=== PATIENT | female | born 1985 | race Caucasian/White ===

== ENCOUNTER 2022-04-24 13:30 | Outpatient (CLI) | payer SELFPAY | END 2022-04-24 13:31 | disposition home or self-care (01) | LOC: NFLDREF 13:37 | PROVIDERS: Visit Provider Registered Nurse | DX: Z12.4 Encounter for screening for malignant neoplasm of cervix (principal) | CPT/HCPCS: 87624; 88175 ==

== ENCOUNTER 2023-06-18 13:57 | Emergency (ER) | payer OTHER, SELFPAY ==
[2023-06-18 14:08] VITALS: BP 129/70; PULSE 80; RESP 20; TEMP 36.5; O2SAT 95; BMI 35.7
--- NOTE | 2023-06-18 14:18 | ED_ITS ---
HPI - Extremity Injury (Lower) General Time Seen by Provider: 14:18 Date Seen: 06/18/23 Chief Complaint: Extremity Pain/Injury, Lower Stated Complaint: Right Ankle injury Time Seen by Provider: 06/18/23 13:58 Source: patient and RN notes reviewed Mode of arrival: ambulatory Limitations: no limitations History of Present Illness HPI Narrative: This 38-year-old female is coming in with ongoing right ankle pain. She injured herself tripping and slipping about 9 days ago on the rocks when it was raining and was slippery. She did note swelling of the ankle. She has been trying to ice, elevate and use [id number] medications. It continues to be painful and bruised. She wonders if perhaps she maybe did injure sub the worse than she suspected. Is only her right ankle that is painful. She denies any numbness tingling in the foot. Related Data Home Medications Medication Instructions Recorded Confirmed copper 380 square mm intrauterine 1 device intrauterine ONCE 04/24/22 06/18/23 device (ParaGard T 380A) multivitamin 1 tab PO QAM 04/24/22 06/18/23 Allergies Allergy/AdvReac Type Severity Reaction Status Date / Time No Known Allergies Allergy Verified 06/18/23 14:15 Review of Systems Narrative: As per HPI. PFSH PFSH Medical History Tubal without intrauterine ?O00.109 - Unspecified tubal without intrauterine (ICD- 10) History of vaginal delivery Family History (Updated 04/20/22 @ 12:34 by Shyanne Liriano) Father High cholesterol Social History Narrative: Non-smoker Smoking Status: Former smoker Do you use any of these nicotine containing products: None How often do you have a drink containing alcohol: 2-4 times a month AUDIT-C Alcohol total score: 2 Non-prescribed substance use: denies use service: No Exam Const: Vital Signs, click to edit/add: Vital Signs - 24 hr 06/18/23 14:08 Temperature 97.7 F Pulse Rate [Right Pulse Oximeter] 80 Respiratory Rate 20 Blood Pressure [Ri ght Upper Arm] 129/70 Pulse Oximetry 95 Oxygen Delivery Me thod Room Air This 38-year-old female is alert interactive no apparent distress. When seen in exam room for, can see that there is visible ecchymosis about the distal ankle both medially and laterally. Ankle has soft tissue swelling but I do not feel any joint effusion. She is tender over the distal right lateral malleolus. She has good pulses, distal sensation of toes is normal and she wiggles her toes easily. She does have range of motion about her ankle but does state it does hurt to bear weight. Documenting provider has reviewed patient's vital signs: yes Course Course Hospital Course: Agree with patient that she should have imaging. Will order x-rays of this ankle. The x-rays are negative, likely represents a significant ankle sprain in either way she understands I will ask her to follow up with Orthopedics. Reevaluation(s) Time of Reevaluation #1: 15:21 Reevaluation #1: Reviewed with patient that I certainly do not see any fracture on my preliminary review. This would indicate a significant sprain. We will try her in a cam walker, if that diminishes her pain with ambulation this should be sufficient. She understands that she will need to follow up with Orthopedics. Certainly the radiology over-read is pending. If there is any concern on this, will let her know. Either way, she will be in a cam walker which would most likely be appropriate immobilization for most things. Vital Signs Vital signs: Initial Vital Signs Temperature 97.7 F 06/18/23 14:08 Temperature Source Temporal Artery Scan 06/18/23 14:08 Pulse Rate 80 06/18/23 14:08 Pulse Rhythm Regular 06/18/23 14:08 Respiratory Rate 20 06/18/23 14:08 Blood Pressure 129/70 06/18/23 14:08 Blood Pressure Mean 89 06/18/23 14:08 Blood Pressure Position Sitting 06/18/23 14:08 Pulse Oximetry 95 06/18/23 14:08 Oxygen Delivery Method Room Air 06/18/23 14:08 Vital Signs Temperature 97.7 F 06/18/23 14:08 Pulse Rate 80 06/18/23 14:08 Respiratory Rate 20 06/18/23 14:08 Blood Pressure 129/70 06/18/23 14:08 Pulse Oximetry 95 08/22/23 14:08 Oxygen Delivery Method Room Air 08/22/23 14:08 Temperature 97.7 F 06/18/23 14:08 Pulse Rate 80 06/18/23 14:08 Respiratory Rate 20 06/18/23 14:08 Blood Pressure 129/70 06/18/23 14:08 Pulse Oximetry 95 06/18/23 14:08 Oxygen Delivery Method Room Air 06/18/23 14:08 MDM - Extremity Injury (Lower) Imaging Data XR right ankle: Attestation: I have reviewed the pertinent imaging results. My impression: No acute pathology on my preliminary review, certainly do not appreciate any fracture. Radiologist's impression: Patient: CHELSEA ROBLES Facility:?[facility] Patient ID:?[id number] Site Patient [id number]:?[id number]. Site :?[id number] Study:?XRay Extremity Right ANKLE 3V-06/18/2023 2:54:35 PM Ordering Physician:?Mattie Denis Final Report: Indication: Trauma. Technique: Right ankle, 3 views. Comparison: None. Findings/Impression: Bones: Alignment is normal. No displaced fractures or bone lesions. Joint spaces: Unremarkable. Soft tissues: Unremarkable. Dictated by Maik Worley MD @ 06/18/2023 4:18:47 PM (Electronic Signature) Discharge Plan Discharge Clinical Impression: Ankle sprain Patient Disposition: Home, Self-Care Condition: Stable Instructions: Ankle Sprain (ED) Additional Instructions: Please contact the orthopedic office to get scheduled for a follow-up, phone number is [phone]. Need to use the cam boot for immobilization until further advised by Orthopedics. Continue to ice and elevate to help diminish pain and swelling. Tylenol and ibuprofen as needed per bottle directions for discomfort. Prescriptions: No Action ParaGard T 380A 380 square mm intrauterine device 1 device intrauterine ONCE Rx Instructions: as a single dose multivitamin Tablet 1 tab PO QAM Stand Alone Forms: [facility] Info Instructions
--- NOTE | 2023-06-18 14:26 | CRLHL7_ITS ---
For Patients: As a result of the Cures Act, medical imaging exams and procedure reports are released immediately into your electronic medical record. You may view this report before your referring provider. If you have questions, please contact your health care provider. Indication: Trauma. Technique: Right ankle, 3 views. Comparison: None. Findings/Impression: Bones: Alignment is normal. No displaced fractures or bone lesions. Joint spaces: Unremarkable. Soft tissues: Unremarkable. Dictated by Maik Worley MD @ 06/18/2023 4:18:47 PM (Electronically Signed)
--- NOTE | 2023-06-18 14:56 | ED.NURSE ---
Pt report given off to next nurse. Pt sitting in room, pleasant
== END 2023-06-18 15:36 | disposition home or self-care (01) ==
PROVIDERS: Emergency Provider Family Medicine
DX: S93.401A Sprain of unspecified ligament of right ankle, initial encounter (principal); W01.0XXA Fall on same level from slipping, tripping and stumbling without subsequent striking against object, initial encounter
CPT/HCPCS: 29505; 73610; 99282; 99283